=== PATIENT | female | born 1940 | race Caucasian/White ===

== ENCOUNTER 2020-11-07 08:14 | Outpatient (CLI) | payer MEDICARE, SELFPAY ==
[2020-11-07 08:40] LABS: Hemoglobin A1C 5.7 % (<5.7)
[2020-11-07 08:42] LABS: Add Urine Microscopic? YES; Appearance Urine Clear (Clear); Bilirubin Urine Negative (Negative); Blood Urine Negative (Negative); Color Urine Light Yellow (Yellow); Glucose Urine UA Negative (Negative); Ketones Urine Negative (Negative); Leukocyte Esterase Ur 1+ (Negative); Nitrate Urine Negative (Negative); Protein Urine Negative (Negative); Urobilinogen Urine 0.2 mg/dL (0.2-1.0)
[2020-11-07 08:47] LABS: Bacteria Urine Trace /hpf; RBC Urine 0-2 /hpf (0-2); Squamous Epithelial Cell Urine Rare /hpf (Few)
[2020-11-07 09:47] LABS: Alanine Aminotransferase 30 U/L (14-59); Albumin Level 3.9 g/dL (3.4-5.0); Alkaline Phosphatase 86 U/L (46-116); Anion Gap 7 mmol/L (8-16); Aspartate Amino Transferase 17 U/L (15-37); Bilirubin,Total 0.5 mg/dL (0.00-1.00); Blood Urea Nitrogen 15 mg/dL (7-18); Calcium 8.7 mg/dL (8.5-10.1); Carbon Dioxide 33 mmol/L (21-32); Chloride 108 mmol/L (98-108); Cholesterol 256 mg/dL (0-200); Creatine Kinase 83 U/L (26-192); Estimated Glomerular Filt Rate 53; Free T3 2.29 pg/mL (2.18-3.98); Free T4 Free Thyroxine 0.81 ng/dL (0.76-1.46); Glucose 90 mg/dL (70-99); HDL Direct 55 mg/dL (40-60); LDL Cholesterol Calculated 185 mg/dL (<130); Osmolality Calculated 306 mOsm/kg (285-295); Potassium 4.9 mmol/L (3.5-5.1); Sodium 148 mmol/L (136-145); Total Protein 6.6 g/dL (6.4-8.2); Triglycerides 81 mg/dL (0-150)
== END 2020-11-07 08:15 | disposition home or self-care (01) ==
LOC: CHSLAB 08:16
PROVIDERS: PCP Internal Medicine; Visit Provider Internal Medicine
DX: R73.01 Impaired fasting glucose (principal); E03.4 Atrophy of thyroid (acquired); M81.0 Age-related osteoporosis without current pathological fracture; E78.2 Mixed hyperlipidemia; I10 Essential (primary) hypertension
CPT/HCPCS: 36415; 80053; 80061; 81001; 82550; 83036; 84439; 84443; 84481

== ENCOUNTER 2020-11-23 09:43 | Outpatient (CLI) | payer MEDICARE, SELFPAY ==
--- NOTE | ~2020-11-23 | US_ITS ---
EXAMINATION: US carotid duplex BI DATE: 11/23/2020 10:17 INDICATION: Carotid bruit TECHNIQUE: Grayscale, color Doppler, and pulsed Doppler images of the cervical carotid arteries were obtained. The degree of vessel stenosis is placed in one of the following categories: normal, <50%, 5 0-69%, >=70% but less than near-occlusion, near-occlusion, or total occlusion. Note that percent sten osis relative to normal distal artery lumen diameter is indirectly measured from velocity measurement s as described by Denny, et al. Radiology 2003; [id number]:[id number]. COMPARISON: None. FINDINGS: RIGHT: The right common carotid artery (CCA) peak systolic velocity (PSV) is 55 cm/s. The right internal car otid artery (ICA) PSV is 72 cm/s. The right ICA end-diastolic velocity (EDV) is 26 cm/s. The right IC A/CCA PSV ratio is 1.3. Grayscale and color Doppler images yield an estimate of <50% diameter reducti on from plaque in the ICA. The external carotid artery (ECA) PSV is 70 cm/s. There is antegrade flow in the right vertebral artery. LEFT: The left CCA PSV is 58 cm/s. The left ICA PSV is 89 cm/s. The left ICA EDV is 27 cm/s. The left ICA/C CA PSV ratio is 1.5. Grayscale and color Doppler images yield an estimate of <50% diameter reduction from plaque in the ICA. The ECA PSV is 77 cm/s. There is antegrade flow in the left vertebral artery. IMPRESSION: 1. <50% stenosis in the right internal carotid artery. 2. <50% stenosis in the left internal carotid artery. Reviewed, dictated and finalized at location A.
== END 2020-11-23 09:44 | disposition home or self-care (01) ==
PROVIDERS: PCP Internal Medicine; Visit Provider Internal Medicine
DX: I65.23 Occlusion and stenosis of bilateral carotid arteries (principal)
CPT/HCPCS: 93880

== ENCOUNTER 2021-05-28 08:43 | Outpatient (CLI) | payer MEDICARE, SELFPAY ==
[2021-05-28 09:17] LABS: Basophils Absolute Auto 0.03 K/mm3 (0.00-0.10); Basophils Percent Auto 0.4 % (0.0-1.0); Eosinophils Absolute Auto 0.33 K/mm3 (0.02-0.50); Eosinophils Percent Auto 4.7 % (1.0-6.0); Hematocrit 46.4 % (35.0-42.0); Hemoglobin 15.1 g/dL (11.7-13.8); Immature Granulocyte Absolute 0.02 K/mm3 (0.00-0.00); Immature Granulocyte Percent A 0.3 % (0.0-0.0); Lymphocytes Absolute Auto 1.78 K/mm3 (1.10-4.50); Lymphocytes Percent Auto 25.5 % (18.0-42.0); Mean Corpuscular HGB Conc 32.5 g/dL (32.0-36.0); Mean Corpuscular Hemoglobin 33.4 pg (27.0-31.0); Mean Corpuscular Volume 102.7 fL (78.0-102.0); Mean Platelet Volume 10.8 fl (9.2-11.8); Monocytes Absolute Auto 0.55 K/mm3 (0.10-0.90); Monocytes Percent Auto 7.9 % (2.0-11.0); Neutrophils Absolute Auto 4.3 K/mm3 (1.7-7.2); Neutrophils Percent Auto 61.2 % (50.0-70.0); Platelet Count Result 232 K/mm3 (150-420); Red Blood Count 4.52 M/mm3 (4.20-5.40); Red Cell Distribution Width 12.4 % (11.6-14.4)
[2021-05-28 09:23] LABS: Add Urine Microscopic? YES; Appearance Urine Clear (Clear); Bilirubin Urine 1+ (Negative); Blood Urine Negative (Negative); Color Urine Yellow (Yellow); Glucose Urine UA Negative (Negative); Ketones Urine Negative (Negative); Leukocyte Esterase Ur Negative (Negative); Nitrate Urine Negative (Negative); Protein Urine Trace (Negative); Specific Grav Ur >= 1.030 (1.010-1.020); Urobilinogen Urine 0.2 mg/dL (0.2-1.0)
[2021-05-28 09:40] LABS: Hemoglobin A1C 5.9 % (<5.7)
[2021-05-28 09:55] LABS: Bacteria Urine Trace /hpf; RBC Urine None seen /hpf (0-2); Squamous Epithelial Cell Urine Few /hpf (Few); WBC Urine None seen /hpf (0-3)
[2021-05-28 10:48] LABS: Alanine Aminotransferase 26 U/L (14-59); Albumin Level 3.8 g/dL (3.4-5.0); Alkaline Phosphatase 74 U/L (46-116); Anion Gap 13 mmol/L (8-16); Aspartate Amino Transferase 15 U/L (15-37); Bilirubin,Total 0.6 mg/dL (0.00-1.00); Blood Urea Nitrogen 11 mg/dL (7-18); Calcium 8.9 mg/dL (8.5-10.1); Carbon Dioxide 28 mmol/L (21-32); Chloride 105 mmol/L (98-108); Cholesterol 267 mg/dL (0-200); Estimated Glomerular Filt Rate 46; Free T3 2.52 pg/mL (2.18-3.98); Free T4 Free Thyroxine 0.85 ng/dL (0.76-1.46); Glucose 111 mg/dL (70-99); HDL Direct 64 mg/dL (40-60); LDL Cholesterol Calculated 182 mg/dL (<130); Osmolality Calculated 302 mOsm/kg (285-295); Potassium 4.2 mmol/L (3.5-5.1); Sodium 146 mmol/L (136-145); Thyroid Stimulating Hormone 1.98 uIU/mL (0.36-3.74); Total Protein 6.7 g/dL (6.4-8.2); Triglycerides 106 mg/dL (0-150)
[2021-05-28 10:50] LABS: Vitamin B12 > 2000 pg/mL (193-986)
[2021-05-30 14:29] LABS: Vitamin D 25 Hydroxy 31 ng/mL (30-100)
== END 2021-05-28 08:44 | disposition home or self-care (01) ==
LOC: CHSLAB 08:45
PROVIDERS: PCP Internal Medicine; Visit Provider Internal Medicine
DX: M81.0 Age-related osteoporosis without current pathological fracture (principal); I10 Essential (primary) hypertension; E03.4 Atrophy of thyroid (acquired); E78.2 Mixed hyperlipidemia; E11.9 Type 2 diabetes mellitus without complications
CPT/HCPCS: 36415; 80053; 80061; 81001; 82306; 82607; 83036; 84439; 84443; 84481; 85025

== ENCOUNTER 2021-08-05 11:05 | Outpatient (CLI) | payer MEDICARE, SELFPAY ==
--- NOTE | ~2021-08-05 | XR_ITS ---
EXAMINATION: XR hip BI 2V w AP pelvis EXAM DATE: 08/05/2021 11:51 INDICATION: Bilateral hip pain, pelvic pain. States fell 3 days ago. TECHNIQUE: Each hip imaged independently (separate right and also left hip) 'frog leg' and frontal p rojections for interpretation. Frontal projection pelvis. Comparison is made to prior examination fr om 06/12/2014. FINDINGS: No radiographic evidence of hip avascular necrosis. There is mild bilateral hip primary o steoarthritis. Moderate to severe disc disease lower lumbar levels. Evidence of lumbar levoscoliosis . Sacrum, sacroiliac joints, sacral arcuate lines are intact. There are no acute fractures identified . IMPRESSION: 1. No acute pelvic or hip fracture. 2. Mild symmetric hip osteoarthritis. 3. Advanced lower lumbar disc disease. Reviewed, dictated and finalized at location A.
== END 2021-08-05 11:06 | disposition home or self-care (01) ==
LOC: CHSIMG 11:08
PROVIDERS: PCP Internal Medicine; Visit Provider Nurse Practitioner Family
DX: M25.552 Pain in left hip (principal); M25.551 Pain in right hip; R10.2 Pelvic and perineal pain
CPT/HCPCS: 73521

== ENCOUNTER 2021-08-06 11:52 | Outpatient (CLI) | payer MEDICARE, SELFPAY ==
--- NOTE | ~2021-08-06 | XR_ITS ---
EXAM: XR lumbar spine 2-3V HISTORY: hx Lumbar DDD, fall 1 wk ago, severe bilat hip pain, LT>RT COMPARISON: MRI lumbar spine 06/14/2014. FINDINGS: 5 nonrib-bearing lumbar-type vertebral bodies with intact pedicles. Lumbar scoliosis. Vert ebral bodies are aligned. Heights are maintained. Disc space narrowing at all lumbar levels, severe a t L3-4, L4-5, and L5-S1. Interspinous narrowing. No fracture or dislocation. IMPRESSION: No acute fracture or traumatic malalignment in the lumbar spine. Multilevel severe degenerative disc disease. Reviewed, dictated and finalized at location K. IMPRESSION: No acute fracture or traumatic malalignment in the lumbar spine. Multilevel sev ere degenerative disc disease.
== END 2021-08-06 11:53 | disposition home or self-care (01) ==
LOC: CHSIMG 11:54
PROVIDERS: PCP Internal Medicine; Visit Provider Nurse Practitioner Family
DX: M51.36 Other intervertebral disc degeneration, lumbar region (principal)
CPT/HCPCS: 72100

== ENCOUNTER 2021-08-13 09:02 | Outpatient (CLI) | payer MEDICARE, SELFPAY ==
--- NOTE | ~2021-08-13 | MR_ITS ---
EXAMINATION: MR lumbar spine wo con DATE: 08/13/2021 09:50 INDICATION: Lumbar degenerative disc disease. Bilateral hip pain. TECHNIQUE: Magnetic resonance imaging (MRI) of the lumbar spine was performed without intravenous con trast. Sequences included sagittal T2-weighted FSE, sagittal T2-weighted FS FSE, sagittal T1-weighted FSE, and axial T2-weighted FSE. COMPARISON: Lumbar spine MRI 06/14/2014 FINDINGS: There is 13 degrees levoscoliosis of lumbar spine. Vertebral body heights are normal. There is mildly decreased disc height at L2-L3 and severely decreased disc height from L3-L4 through L5-S1 with endplate remodeling. 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 The distal spinal cord signal intensity is normal. The conus medullaris is at L1. There are left kidney cyst measuring up to 2.7 cm . The following disc levels are specifically discussed: L1-L2: The disc does not extend beyond the endplate margin. There is mild bilateral facet joint osteo arthritis. There is no neural foraminal stenosis. There is no central canal stenosis. L2-L3: The disc is bulging and has an annular fissure. There is mild bilateral facet joint osteoarthr itis. There is mild bilateral neural foraminal stenosis. There is mild central canal stenosis. L3-L4: The disc is bulging and has an annular fissure. There is moderate bilateral facet joint osteoa rthritis. There is mild bilateral neural foraminal stenosis. There is mild central canal stenosis. L4-L5: The disc is bulging and has an annular fissure. There is mild bilateral facet joint osteoarthr itis. There is mild bilateral neural foraminal stenosis. There is mild central canal stenosis. L5-S1: The disc is bulging and has an annular fissure. There is mild right and moderate left facet roge int osteoarthritis. There is mild right and moderate left neural foraminal stenosis. There is mild ce ntral canal stenosis. IMPRESSION: 1. Severe lumbar spondylosis, worsened from 06/14/2014. 2. Lumbar levoscoliosis. Reviewed, dictated and finalized at location A.
== END 2021-08-13 09:03 | disposition home or self-care (01) ==
LOC: CHSIMG 09:03
PROVIDERS: PCP Internal Medicine; Visit Provider Internal Medicine
DX: M51.36 Other intervertebral disc degeneration, lumbar region (principal); M25.552 Pain in left hip; M25.551 Pain in right hip
CPT/HCPCS: 72148

== ENCOUNTER 2022-06-02 12:27 | Observation (INO) | payer MEDICARE, SELFPAY ==
[2022-06-02] VITALS (20 sets, daily range): BP systolic 136–157; BP diastolic 66–92; PULSE 68–95; RESP 12–33; TEMP 36.4; O2SAT 92–98; BMI 28.2
--- NOTE | ~2022-06-02 | XR_ITS ---
EXAM: XR shoulder RT min 2V DATE: 06/02/2022 17:00 HISTORY: right shoulder pain. FALL AT 0400 TODAY . COMPARISON: None available. FINDINGS: Normal mineralization. No fracture or dislocation. No lytic or blastic lesion. Degenerativ e change at the AC joint and glenohumeral joint. No erosion or periosteal change. Soft tissues within normal limits. IMPRESSION: No acute osseous finding in the right shoulder. Reviewed, dictated and finalized at location K. H CERTIFICATE CLERK
--- NOTE | ~2022-06-02 | CT_ITS ---
EXAMINATION: CTA brain carotid DATE: 06/02/2022 16:50 INDICATION: AMS TECHNIQUE: Computed tomographic angiography (CTA) of the head and neck was performed with 100 mL Omni paque-350 intravenous contrast. Automated exposure control and iterative reconstruction technique wer e employed. The dose-length product was 967.64 mGy-cm. Maximum intensity projection and volume render ed 3D-reconstructions were created by the technologist on a separate workstation. COMPARISON: CT brain, same date. FINDINGS: CTA HEAD: No large vessel occlusion, aneurysm, high flow vascular malformation, nidus or extravasation. The ant erior to indicating artery is patent. Bilateral persistent origin of the posterior cerebral art eries. Hypoplastic intradural portion of the left distal vertebral artery. Symmetric bilateral cerebr al and cerebellar parenchymal enhancement. No cerebral venous thrombosis. CTA NECK: Aortic arch and proximal great vessels: Minimal atherosclerotic calcifications at the visualized aort ic arch and proximal great vessels. Right common carotid, carotid bifurcation, and internal carotid artery: Minimal calcified plaque at t he bifurcation.There is 0% stenosis of the proximal right internal carotid artery relative to normal distal artery lumen diameter (NASCET criteria). Left common carotid, carotid bifurcation, and internal carotid artery: Minimal calcified plaque at th e bifurcation.There is 0% stenosis of the proximal left internal carotid artery relative to normal di stal artery lumen diameter (NASCET criteria). Vertebral arteries: No significant plaque or stenosis. Right vertebral artery is dominant. Other findings: Bilateral lens replacements. Biapical pleural scarring. Emphysematous change. Depende nt groundglass opacities may represent mild edema. Degenerative change in the cervical spine. Old typ e II odontoid fracture. Anterior C1 arch and odontoid tip fusion. IMPRESSION: 1. No acute large vessel occlusion. 2. No significant carotid or vertebral stenosis. 3. Chronic/incidental findings detailed above. Reviewed, dictated and finalized at location K. CY OFFICER
--- NOTE | ~2022-06-02 | CT_ITS ---
EXAMINATION: CT brain wo con INDICATION: Weakness and tremors COMPARISON: None TECHNIQUE: Standard unenhanced head CT. The dose-length product (DLP) was 605.33 mGy-cm. The mA was a djusted according to patient size. Iterative reconstruction technique was employed. FINDINGS: There is no acute intraparenchymal hemorrhage. No evidence of mass lesion. No evidence of a cute infarction. There is mild periventricular and subcortical hypodensity probably related to small vessel ischemic disease. There is mild prominence of the sulci and ventricles related to cerebral atr ophy. Intracranial calcified cerebral atherosclerosis is noted. There are no extra-axial collections. There is no mass effect or midline shift. Changes in the globes are likely from ocular lens surgery. The visualized sinuses and mastoid air cells are well aerated. IMPRESSION: 1. No acute intracranial abnormality. 2. Age related findings. Reviewed, dictated and finalized at location B. DELIVERER
--- NOTE | ~2022-06-02 | MR_ITS ---
EXAMINATION: MR brain/brain stem wo/w con DATE: 06/03/2022 07:54 INDICATION: Transient ischemic attack. TECHNIQUE: Magnetic resonance imaging (MRI) of the brain and brainstem was performed without and with 14 mL MultiHance intravenous contrast. COMPARISON: Head CT 06/02/2022, brain MRI 10/02/2007 FINDINGS: There are scattered areas of nonspecific increased T2-weighted signal intensity in the cere bral white matter and grace, which is within normal limits for the patient's age. There is no intracra nial hemorrhage, acute infarction, or abnormal intracranial mass lesion. The ventricles are normal in size. There are likely changes of ocular lens replacement surgeries. There is mild mucosal thickenin g in the ethmoid sinuses. The mastoid air cells are normal. IMPRESSION: 1. Normal aging brain. Reviewed, dictated and finalized at location A. CIATE MERCHANT IMPRESSION: 1. Normal aging brain.
--- NOTE | ~2022-06-02 | XR_ITS ---
EXAMINATION: XR chest 1V DATE: 06/02/2022 14:46 INDICATION: Weakness. TECHNIQUE: A single frontal view of the chest was obtained. COMPARISON: Chest single view 12/29/2016 FINDINGS: There is mild atelectasis at left lung base. There is mild scarring at the lung apices. No pleural effusion or pneumothorax. The heart size is normal. IMPRESSION: 1. Mild atelectasis at left lung base and mild scarring at the lung apices. Reviewed, dictated and finalized at location A. ANICAL DEVELOPER PROVER
--- NOTE | ~2022-06-02 | XR_ITS ---
EXAM: XR hip RT 2V w AP pelvis DATE: 06/02/2022 16:59 HISTORY: right hip pain after fall AT 0400 TODAY. . COMPARISON: 08/05/2021. FINDINGS: Normal mineralization. No fracture or dislocation. No lytic or blastic lesion. Severe dege nerative disc disease in the lower lumbar spine. Mild bilateral hip osteoarthritis. Chronic dystrophi c ossification adjacent to the right greater trochanter. No erosion or periosteal change. Excreted co ntrast in the urinary bladder. IMPRESSION: No acute osseous finding in the pelvis or right hip. Reviewed, dictated and finalized at location K. INFRASTRUCTURE ENGINEER
--- NOTE | 2022-06-02 13:27 | ECG_ITS ---
Measurements Intervals [place] Rate: 71 P: 33 IN: 172 QRS: -21 QRSD: 84 T: 70 QT: 399 QTc: 434 Interpretive Statements SINUS RHYTHM BORDERLINE LEFT AXIS DEVIATION [QRS AXIS < -20] MINIMAL ST AND T-WAVE CHANGE NO PREVIOUS ECG AVAILABLE FOR COMPARISON Electronically Signed On 06-03-2022 11:24:12 INVENTORY WORKER by Ashlyn Buckley M.D.
[2022-06-02 14:29] LABS: Basophils Absolute Auto 0.1 K/mm3 (0.0-0.1); Basophils Percent Auto 0.7 % (0.2-1.2); Eosinophils Absolute Auto 0.2 K/mm3 (0-0.3); Eosinophils Percent Auto 2.7 % (0-4.4); Hematocrit 46.8 % (37.0-47.0); Hemoglobin 15.6 g/dL (12.0-15.0); Immature Granulocyte Absolute 0.02 K/mm3 (0.00-0.031); Immature Granulocyte Percent A 0.2 % (0-0.5); Lymphocytes Absolute Auto 1.72 K/mm3 (0.9-3.2); Lymphocytes Percent Auto 20.8 % (18.3-44.2); Mean Corpuscular HGB Conc 33.3 g/dl (32-36); Mean Corpuscular Hemoglobin 35.1 pg (26-34); Mean Corpuscular Volume 105.4 fl (80-100); Mean Platelet Volume 10.9 fl (7.4-10.4); Monocytes Absolute Auto 0.7 K/mm3 (0.1-0.6); Monocytes Percent Auto 8.4 % (2.6-8.5); Neutrophils Absolute Auto 5.5 K/mm3 (1.3-6.7); Neutrophils Percent Auto 67.2 % (45.5-73.1); Platelet Count Result 308 k/mm3 (150-375); Red Blood Count 4.44 M/mm3 (4.2-5.4); Red Cell Distribution Width 12.8 % (11.5-14.5); White Blood Count 8.3 K/mm3 (4.5-10.0)
[2022-06-02 14:40] LABS: Prothrombin Time 13.1 Seconds (11.1-14.7)
[2022-06-02 14:41] LABS: Partial Thromboplastin Time 30.8 SECONDS (22.3-36.8)
[2022-06-02 14:47] LABS: Platelet Estimate Adequate (Adequate)
[2022-06-02 14:48] LABS: Macrocytosis 1+ (NORMAL); Schistocytes None Seen (NORMAL); Stomatocytes 1+ (NORMAL)
[2022-06-02 15:36] LABS: Alanine Aminotransferase 22 U/L (6-35); Albumin Level 4.8 g/dL (3.5-5.1); Alkaline Phosphatase 77 U/L (38-126); Anion Gap 6 mmol/L (8-16); Aspartate Amino Transferase 27 U/L (14-36); Bilirubin,Total 0.6 mg/dL (0.2-1.3); Blood Urea Nitrogen 20 mg/dL (7-17); Calcium 8.9 mg/dL (8.4-10.2); Carbon Dioxide 29 mmol/L (22-30); Chloride 104 mmol/L (98-107); Estimated CRCL calculation 41 ml/min; Estimated Glomerular Filt Rate 60; Glucose 99 mg/dL (65-110); Potassium 3.8 mmol/L (3.4-5.0); Sodium 139 mmol/L (137-145)
--- NOTE | 2022-06-02 15:44 | ED.GENADULT ---
HPI - General Adult General Chief complaint: Neuro Symptoms/Deficit Stated complaint: shaking episode this am Time Seen by Provider: 06/02/22 15:07 History of Present Illness HPI narrative: 81-year-old female presenting to the emergency department for evaluation of altered mental status after a fall. Patient states she had a fall this morning at approximately 4 AM. Patient states she was walking through the kitchen. Patient states she does not think she hit her head denies any loss of consciousness. Patient is unsure of what caused the fall. Initially after the fall patient was complaining of right shoulder and right hip pain but patient was able to ambulate back to her bed. Patient states she had some right-sided facial numbness and states that her left leg was difficult to get back under her. Patient did take a 4-hour nap and patient states she felt better but thought she was not back to her normal self. Her initial evaluation the emergency department patient feels she is back to her normal self and states that other than her physical strength she appears back to her normal self. Patient states she does still have some right shoulder discomfort but states she does have chronic pain but that the current pain is worse than her chronic. Review of Systems Review of Systems: CONSTITUTIONAL: Denies fever, chills, or sweats. EYES: Denies visual changes, redness, or discharge. ENT: Denies rhinorrhea, congestion, sore throat, or otalgia. CARDIOVASCULAR: Denies chest pain, palpitations, or edema. RESPIRATORY: Denies cough or dyspnea. GASTROINTESTINAL: Denies abdominal pain, nausea, vomiting, or diarrhea. GENITOURINARY: Denies dysuria or hematuria. SKIN: Denies rash or itching. MUSCULOSKELETAL: Denies back pain, joint pain, or myalgia. NEUROLOGIC: See HPI PSYCHIATRIC: Denies anxiety or depression. Exam Narrative: APPEARANCE: Well appearing, no pain, no distress, well-nourished. HEAD: normocephalic, atraumatic. EYES: PERRLA/EOMI, conjunctivae clear. NOSE: Normal no drainage NECK: Supple. No adenopathy, no masses. RESPIRATORY: Airway patent, respirations nonlabored. Clear to auscultation bilaterally, no rales, rhonchi, wheezing. CARDIOVASCULAR: Regular rate and rhythm without murmurs rubs or gallops. ABDOMINAL: Soft, nontender, nondistended, normal bowel sounds MUSCULOSKELETAL: Moves all extremities. Strength/ROM intact, No edema, No calf tenderness. NEURO: Alert. Cranial nerves II through XII intact. Grossly intact. No discrimination, no ataxia, normal visual slater SKIN: Warm, dry. Normal Color Course Course Emergency Course: X-rays were negative for acute fracture or dislocation. Patient's head CT was negative. CTA was ordered due to the patient still feeling foggy . CTA was negative for acute finding. On reexamination patient states she does feel improved. Patient did have a normal neuro exam with no deficit. Patient was able to ambulate at her baseline. Patient is afebrile with no leukocytosis. Patient's electrolytes are similar to her baseline. Symptoms are concerning for a TIA. No evidence of acute stroke on imaging. Patient is back to her normal baseline. Patient was offered admission and did agree to stay. Case was also discussed with Dr. Lopez and patient will be seen as consult by neurology. Case was discussed with hospitalist and patient [facility] Patient was at her baseline and stable at time of admission. All question concerns were addressed. Vital Signs Vital signs: Vital Signs Temperature 97.6 F 06/02/22 13:17 Pulse Rate 68 06/02/22 13:17 Respiratory Rate 16 06/02/22 13:17 Blood Pressure 140/66 06/02/22 13:17 Pulse Oximetry 97 06/02/22 13:17 Oxygen Delivery Room Air 06/02/22 13:17 Temperature 97.6 F 06/02/22 13:17 Pulse Rate 79 06/02/22 18:15 Respiratory Rate 12 06/02/22 18:15 Blood Pressure 139/92 H 06/02/22 18:15 Puls
[2022-06-02 15:49] LABS: Troponin I < 0.012 ng/mL (0.000-0.034)
[2022-06-02] MEDS: ASPIRIN 81 MG CHEWABLE TABLET 324 MG PO (18:07)
[2022-06-02 19:01] LABS: Influenza A QL RT-PCR Negative (Negative); Influenza B QL RT-PCR Negative (Negative); RSV RNA, RT-PCR Negative (Negative); SARS-CoV-2 RNA PCR Negative
--- NOTE | 2022-06-02 19:51 | PM.IMHP ---
H&P: HPI History of Present Illness Date/Time: 06/02/22 19:51 Chief Complaint: Neurological symptoms Narrative: This is a 81-year-old female patient who got up early this morning and had a fall. She stated that she was having difficulty moving 1 of her legs. The patient fell on her way to the bathroom and was confused. She also has some right-sided numbness to her face and she had pain to her right shoulder and right hip after her fall. However she was able to ambulate back to her bed. The patient went back to bed and slept for few hours. When she woke up she still was not back to her baseline. There for the brought her to the emergency room. Now the patient is alert orientated x3 and is talking without difficulty. No focal weakness is noted. Shoulder x-ray was read as no acute osseous finding in the right shoulder. Hip and pelvis x-ray was read as no acute osseous finding the pelvis or right hip. CTA of the neck was read as1. No acute large vessel occlusion. 2. No significant carotid or vertebral stenosis. 3. Chronic/incidental findings detailed above Head CT was read as no acute intracranial abnormality. Age-related findings. Chest x-ray was read as mild atelectasis at left lung base and mild scarring at the lung apices. The patient was given an aspirin in the emergency room. She is negative for influenza A/B RSV and COVID. The patient is being admitted to observation status on the date of service of 06/02/2022 Review of Systems Review of Systems: See HPI All systems reviewed & are unremarkable except as noted in HPI and below Constitutional: Constitutional: Reports as per HPI and Reports no additional constitutional complaints Eyes: Eyes: Reports as per HPI and Reports no additional eye complaints ENT: Reports system reviewed and no additional complaints, except as documented and Reports Normal hearing present Cardiovascular: Cardiovascular: Reports no additional cardiovascular complaints Respiratory: Respiratory: Reports no additional respiratory complaints and Reports no additional respiratory complaints Gastrointestinal: Gastrointestinal: Reports as per HPI and Reports no additional gastrointestinal complaints Musculoskeletal: Musculoskeletal: Reports no additional musculoskeletal complaints Integumentary/Breasts: Skin/Breast: Reports system reviewed and no additional complaints, except as docu and Reports as per HPI Neurologic: Reports system reviewed and no additional complaints, except as documented, Reports as per HPI and Reports Normal hearing present Psychiatric: Psychiatric: Reports no additional psychiatric complaints and Reports as per HPI Endocrine: Endocrine: Reports no additional endocrine complaints Hematologic/Lymphatic: Hematologic/Lymphatic: Reports no additional hematologic/lymphatic complaints Allergic/Immunologic: Allergic/Immunologic: Reports no additional allergic/immunologic complaints [facility] Past Medical History Medical History (Updated 06/03/22 @ 02:12 by Triny Matos NP) Chronic GERD COPD (chronic obstructive pulmonary disease) asthma and emphysema Restless leg syndrome Surgical History Surgical History H/O colonoscopy with polypectomy H/O esophagogastroduodenoscopy H/O: hysterectomy History of appendectomy History of bladder suspension procedure Family History Family History Mother Cerebrovascular accident Father Carcinoma of colon COPD (chronic obstructive pulmonary disease) Lung cancer Sibling Lung cancer sister Social History Social History (Updated 06/03/22 @ 02:13 by Triny Matos NP) Social History: She lives with and has 3 children. She is retired from couple different jobs. Code status full code Smoking status: Former smoker Alcohol intake: never Substance use: never Lack of Transportation: No [place]
--- NOTE | 2022-06-02 20:29 | ADMGEN ---
This patient, Eden Zarate, was admitted to Medical Room 245-. Patient/family oriented to hospital policies and general routines including ID bracelet, bed and alarms, visiting hours, pain management, procedures, bathroom and other care routines, personal items, smoking policy, room service/diet, and visiting hours. Information on how to activate the Rapid Response Team has been discussed. Patient/Family are encouraged to report perceived risks to care and to ask questions if they do not understand what they are told or what they should do.
[2022-06-03] VITALS: PULSE 68
--- NOTE | 2022-06-03 | ECHO_ITS ---
Patient Info Name: Eden Zarate Age: 81 years : 1940 Gender: Female Ht: 62 in Wt: 154 lbs BSA: 1.77 m2 HR: 59 bpm BP: 136 / 47 mmHg Heart Rhythm: Sinus Rhythm Exam Date: 06/03/2022 8:24 AM Exam Location: [facility] Patient Status: Inpatient Admit Date: 06/02/2022 Staff Ordering Physician: Triny Matos PAINTER HELPER Extension Work Director: Tejinder Mohr, EMMA, RT Attending Provider: Keely Haile MD Referring Physician: Shawna PUENTES; Exam Type: CA echo doppler color flow Study Info Indications G45.8 - Other transient cerebral ischemic attacks and related syndromes Complete two-dimensional, color flow and Doppler transthoracic echocardiogram is performed. Summary 1. Complete two-dimensional, color flow and Doppler transthoracic echocardiogram is performed. 2. Normal left ventricular size with mild concentric hypertrophy. Normal left ventricular systolic function, EF 60-65%, with no segmental wall motion abnormalities. Normal diastolic function. Global longitudinal strain was-20%, consistent with normal left ventricular function. 3. There is mild aortic valve regurgitation. 4. There is mild tricuspid valve regurgitation. 5. No pulmonary hypertension, estimated pulmonary arterial systolic pressure is Empty. 6. Normal sinus rhythm. Left Ventricle Left ventricular chamber dimension is normal. Left ventricular systolic function is normal, estimated at 65-70%. There is mildly increased left ventricular wall thickness. Left ventricular septal wall motion is normal. The left ventricular diastolic function is normal. Global longitudinal strain is normal at -20 %. Right Ventricle Right ventricular chamber dimension is normal. Right ventricular systolic function is normal. Left Atria Left atrial chamber dimension is normal. Right Atria Right atrial chamber dimension is normal. Aortic Valve The aortic valve is trileaflet. There is no aortic valve sclerosis. There is no aortic valve stenosis. There is mild aortic valve regurgitation. Pulmonic Valve The pulmonic valve is normal. There is no pulmonic valve stenosis. There is no pulmonic regurgitation. Mitral Valve The mitral valve has normal leaflets. There is no mitral valve stenosis. There is trace mitral valve regurgitation. Tricuspid Valve The tricuspid valve leaflets are normal. There is no significant tricuspid valve stenosis. There is mild tricuspid valve regurgitation. No pulmonary hypertension, estimated pulmonary arterial systolic pressure is Empty. Pericardium/Pleural The pericardium appears normal. There is no pericardial effusion. Inferior Vena Cava Normal inferior vena cava with >50% collapse upon inspiration consistent with Empty right atrial pressure, Empty. Aorta The aortic root size at the sinus of Valsalva is normal. The prox ascending aorta size is normal. Left Ventricular Outflow Tract Name Value Normal LVOT 2D LVOT Diameter 2.1 cm LVOT Doppler LVOT Peak Gradient 4 mmHg LVOT Mean Gradient 2 mmHg LVOT VTI
[2022-06-03 02:27] LABS: Appearance Urine Clear (Clear); Bilirubin Urine Negative (Negative); Blood Urine Trace-intact (Negative); Color Urine Yellow (Yellow); Glucose Urine UA Negative (Negative); Ketones Urine Negative (Negative); Leukocyte Esterase Ur Negative LEU/UL (NEGATIVE); Nitrate Urine Negative (Negative); Protein Urine Negative (Negative); Urobilinogen Urine 0.2 mg/dL (<2.0); pH Urine 6.5 (5.0-9.0)
[2022-06-03 02:34] LABS: RBC Urine 0-2 /hpf (0-2); Squamous Epithelial Cell Urine Rare /hpf (Few); WBC Urine 0-3 /hpf (0-3)
[2022-06-03 02:35] LABS: Add Urine Microscopic? NO
[2022-06-03] MEDS: PREGABALIN (*CRX) 75 MG CAPSULE 150 MG PO (02:51)
[2022-06-03] MEDS: MEMANTINE 10 MG TABLET PO (02:52)
[2022-06-03] MEDS: MIRTAZAPINE 15 MG TABLET PO (02:52)
[2022-06-03] MEDS: PANTOPRAZOLE 40 MG TABLET PO (02:52)
[2022-06-03 04:00] VITALS: PULSE 69
[2022-06-03 05:24] VITALS: BP 136/47; PULSE 65; RESP 18; TEMP 36.2; O2SAT 94
[2022-06-03 06:21] LABS: Basophils Absolute Auto 0.1 K/mm3 (0.0-0.1); Basophils Percent Auto 1.2 % (0.2-1.2); Eosinophils Absolute Auto 0.3 K/mm3 (0-0.3); Eosinophils Percent Auto 4.2 % (0-4.4); Hematocrit 42.6 % (37.0-47.0); Hemoglobin 14.3 g/dL (12.0-15.0); Immature Granulocyte Absolute 0.01 K/mm3 (0.00-0.031); Immature Granulocyte Percent A 0.2 % (0-0.5); Lymphocytes Absolute Auto 2.15 K/mm3 (0.9-3.2); Lymphocytes Percent Auto 36.4 % (18.3-44.2); Mean Corpuscular HGB Conc 33.6 g/dl (32-36); Mean Corpuscular Hemoglobin 35.2 pg (26-34); Mean Corpuscular Volume 104.9 fl (80-100); Mean Platelet Volume 10.8 fl (7.4-10.4); Monocytes Absolute Auto 0.6 K/mm3 (0.1-0.6); Monocytes Percent Auto 9.5 % (2.6-8.5); Neutrophils Absolute Auto 2.9 K/mm3 (1.3-6.7); Neutrophils Percent Auto 48.5 % (45.5-73.1); Platelet Count Result 246 k/mm3 (150-375); Red Blood Count 4.06 M/mm3 (4.2-5.4); Red Cell Distribution Width 12.8 % (11.5-14.5); White Blood Count 5.9 K/mm3 (4.5-10.0)
[2022-06-03 06:35] LABS: Alanine Aminotransferase 21 U/L (6-35); Albumin Level 4.3 g/dL (3.5-5.1); Alkaline Phosphatase 64 U/L (38-126); Anion Gap 6 mmol/L (8-16); Aspartate Amino Transferase 28 U/L (14-36); Bilirubin,Total 0.8 mg/dL (0.2-1.3); Blood Urea Nitrogen 16 mg/dL (7-17); Calcium 8.6 mg/dL (8.4-10.2); Carbon Dioxide 30 mmol/L (22-30); Chloride 106 mmol/L (98-107); Estimated CRCL calculation 41 ml/min; Estimated Glomerular Filt Rate 60; Glucose 95 mg/dL (65-110); Magnesium 2.3 mg/dL (1.6-2.3); Potassium 3.3 mmol/L (3.4-5.0); Sodium 142 mmol/L (137-145)
[2022-06-03 08:00] VITALS: PULSE 79; RESP 18; O2SAT 93
--- NOTE | 2022-06-03 09:02 | WPDNEURCNPN ---
Assessment and Plan Assessment and plan (1) Brain TIA: Code(s): G45.9 - Transient cerebral ischemic attack, unspecified Status: Acute (2) Memory deficit: Code(s): R41.3 - Other amnesia Status: Acute (3) Restless leg syndrome: Code(s): G25.81 - Restless legs syndrome Status: Acute Plan Eden Zarate is a 81 year old female with a history of COPD, RLS and dementia presenting due to concern for TIA. MRI brain normal. - Start daily aspirin - Patient reports she has already been prescribed a medication for hyperlipidemia -- she will need to follow-up with PCP regarding further management of this - Surface echocardiogram pending - if unremarkable, ok to discharge Consult date: 06/03/22 Reason for consult: TIA HPI: Eden Zarate is a 81 year old female with a history of COPD, RLS and dementia presenting due to concern for TIA. Patient presented on 06/02 after sustaining a fall in the morning. Patient was walking in her kitchen when she fell. She did not hit her head or have any loss of consciousness. Afterwards she noted numbness in the right side of the face as well as pain in the right shoulder and right hip. She was able to ambulate back to bed, but felt that her left leg was weaker. She took a nap for several hours, but still did not seem back to baseline afterwards according to her . She was subsequently to the emergency room where her neuro exam was non-focal and she was back to baseline. CT head and CTA brain and carotid were unremarkable. Blood pressure has been in the 130-150s systolic. She is not on any blood thinners. She does take donepezil and memantine for dementia. MRI brain was normal. She feels back to baseline. She does not take any statins because it exacerbates her fibromyalgia. She reports that her PCP has prescribed her an injectable medication for her cholesterol, but she does not know the name of it. She does not smoke. Review of Systems Constitutional: Constitutional: Reports no additional constitutional complaints Eyes: Eyes: Reports no additional eye complaints ENT: Reports system reviewed and no additional complaints, except as documented Cardiovascular: Cardiovascular: Reports no additional cardiovascular complaints Respiratory: Respiratory: Reports no additional respiratory complaints Gastrointestinal: Gastrointestinal: Reports no additional gastrointestinal complaints Genitourinary: Genitourinary: Reports no additional female genitourinary complaints Musculoskeletal: Musculoskeletal: Reports no additional musculoskeletal complaints Integumentary/Breasts: Skin/Breast: Reports system reviewed and no additional complaints, except as docu Neurologic: Reports as per HPI Psychiatric: Psychiatric: Reports no additional psychiatric complaints PMFSH Past Medical History Medical History Chronic GERD COPD (chronic obstructive pulmonary disease) asthma and emphysema Restless leg syndrome Surgical History Surgical History H/O colonoscopy with polypectomy H/O esophagogastroduodenoscopy H/O: hysterectomy History of appendectomy History of bladder suspension procedure Family History Family History Mother Cerebrovascular accident Father Carcinoma of colon COPD (chronic obstructive pulmonary disease) Lung cancer Sibling Lung cancer sister Social History Social History Social History: She lives with and has 3 children. She is retired from couple different jobs. Code status full code Smoking status: Former smoker Alcohol intake: never Substance use: never Lack of Transportation: No Lack of Food: Never True Current Housing: I Have Housing Concerned About Future Housing: No Difficulty Paying Gas/Electric
[2022-06-03] MEDS: ASPIRIN 81 MG CHEWABLE TABLET PO (09:56)
[2022-06-03 10:05] VITALS: PULSE 79; RESP 18; O2SAT 93
[2022-06-03] MEDS: FLUTICASONE/UMECLIDIN/VILANTER 100-62.5-25 MCG ELLIPTA 1 PUFF INHALATION (10:05)
--- NOTE | 2022-06-03 10:37 | PM.DS ---
DS: Admitting Diagnosis Discharge Date 06/03/22 Admitting Diagnosis TIA DS: Discharge Diagnosis Discharge Diagnosis (1) Brain TIA: Code(s): G45.9 - Transient cerebral ischemic attack, unspecified Status: Acute Assessment and Plan: -neurology has been consulted. -CT of the brain shows nothing acute. -an echo has been ordered with bubble study -MRI the brain has been ordered. -the patient was started on aspirin. -no further neural deficits was noted. (2) COPD (chronic obstructive pulmonary disease): Code(s): J44.9 - Chronic obstructive pulmonary disease, unspecified Status: Acute Assessment and Plan: -continue with home inhaler (3) Chronic GERD: Code(s): K21.9 - Gastro-esophageal reflux disease without esophagitis Status: Acute Assessment and Plan: Continue with pantoprazole (4) Memory deficit: Code(s): R41.3 - Other amnesia Status: Acute Assessment and Plan: -continue with Aricept and Namenda (5) Restless leg syndrome: Code(s): G25.81 - Restless legs syndrome Status: Acute Assessment and Plan: -continue with Remeron and Lyrica DS: Summary Hospital Course Hospital Course: 81-year-old female came in with lower extremity weakness. Patient was worked up for TIA workup was unrevealing for any CVA. Patient is started on aspirin statin. Can follow up with Neurology as needed. Otherwise she can be discharged home Time Spent with Patient Time attestation: Total time spent providing and/or coordinating discharge services: Exam Const: General: cooperative, healthy appearing, comfortable, no acute distress, well developed, alert, awake, Physically active, average body habitus and well nourished Nutritional Appearance: average body habitus and well nourished Orientation/consciousness: oriented to person, oriented to place, oriented to time and patient oriented x3 Limitations: no limitations HENMT: Head: normal to inspection, No palpable skull fracture present, normocephalic and atraumatic Ears: hearing grossly normal bilaterally and external ears normal Face/Nose/Sinus: Normal external nose present and Normal nares present Eyes: General: appearance normal, both eyes and all related structures Alignment and Position: alignment normal Periorbital: periorbital findings normal Eyelids: eyelids normal Sclera: sclerae normal Cornea: corneas normal Pupils: Equal, round and reactive pupils present EOM: EOMs intact bilaterally Neck: Neck: normal visual inspection, full ROM, no lymphadenopathy, trachea midline and supple Chest: Chest palpation & inspection: normal inspection of the chest Resp: Effort & Inspection: normal respiratory effort Auscultation: clear to auscultation bilaterally Cardio: Palpation: normal PMI Rate: regular rate Rhythm: regular rhythm Heart sounds: S1 normal heart sound present and S2 normal heart sound present Peripheral pulses: Peripheral pulses 2+ throughout GI: Inspection: normal to inspection Auscultation: normal bowel sounds Rectal Exam: deferred Back/Spine/Pelvis: Cervical Spine: cervical ROM normal Skin: General skin exam: normal color Lesions: no lesions Rashes: no rashes Trauma: no lacerations or abrasions Wounds: no wounds Hair: normal Nails: normal Neuro: General: oriented to person, oriented to place, oriented to time and patient oriented x3 Cranial nerves: Yes Equal, round and reactive pupils present and Yes Normal hearing present Cognition (Neuro): normal cognition Speech: normal speech Gait exam (Neuro): Normal gait present Motor exam (neuro): 5/5 motor strength present throughout Sensory Exam: normal sensation Other: No focal weakness at this time. The patient had an IV in the right AC which was making it difficult for her to do [id number]. Extrem: General: normal to inspection Right upper extremity: normal to inspection and shoulder/upper arm Left upper extremity: no
== END 2022-06-03 13:15 | disposition home or self-care (01) ==
LOC: ANHED 18:41 → ANH2MED 20:21
PROVIDERS: Nurse Practitioner; Admitting Provider Family Medicine; Emergency Provider Emergency Medicine; PCP Internal Medicine; Visit Provider Chiropractor
DX: G45.9 Transient cerebral ischemic attack, unspecified (principal); J44.9 Chronic obstructive pulmonary disease, unspecified; K21.9 Gastro-esophageal reflux disease without esophagitis; R41.3 Other amnesia; G25.81 Restless legs syndrome; M25.551 Pain in right hip; M25.511 Pain in right shoulder; W19.XXXA Unspecified fall, initial encounter; Z20.822 Contact with and (suspected) exposure to COVID-19; I08.2 Rheumatic disorders of both aortic and tricuspid valves; J98.11 Atelectasis; Z87.891 Personal history of nicotine dependence; Z79.82 Long term (current) use of aspirin; Z79.899 Other long term (current) drug therapy; Z82.3 Family history of stroke
CPT/HCPCS: 36415; 70450; 70496; 70498; 70553; 71045; 73030; 73502; 80053; 81003; 83735; 84443; 84484; 85025; 85610; 85730; 87637; 93005; 93306; 94640; 97161; 97165; 99285; A9270; A9577; G0378; Q9967

== ENCOUNTER 2022-11-19 07:59 | Outpatient (CLI) | payer MEDICARE, SELFPAY ==
[2022-11-19 08:14] LABS: Basophils Absolute Auto 0.06 K/mm3 (0.00-0.10); Basophils Percent Auto 0.9 % (0.0-1.0); Eosinophils Absolute Auto 0.37 K/mm3 (0.02-0.50); Eosinophils Percent Auto 5.8 % (1.0-6.0); Hemoglobin 14.6 g/dL (11.7-13.8); Immature Granulocyte Absolute 0.02 K/mm3 (0.00-0.00); Immature Granulocyte Percent A 0.3 % (0.0-0.0); Lymphocytes Absolute Auto 2.36 K/mm3 (1.10-4.50); Lymphocytes Percent Auto 36.8 % (18.0-42.0); Mean Corpuscular HGB Conc 33.2 g/dL (32.0-36.0); Mean Corpuscular Hemoglobin 34.6 pg (27.0-31.0); Mean Corpuscular Volume 104.3 fL (78.0-102.0); Monocytes Absolute Auto 0.59 K/mm3 (0.10-0.90); Monocytes Percent Auto 9.2 % (2.0-11.0); Platelet Count Result 230 K/mm3 (150-420); Red Blood Count 4.22 M/mm3 (4.20-5.40); Red Cell Distribution Width 12.9 % (11.6-14.4); White Blood Count 6.4 K/mm3 (4.8-10.8)
[2022-11-19 08:17] LABS: Appearance Urine Clear (Clear); Bilirubin Urine Negative (Negative); Blood Urine Negative (Negative); Color Urine Yellow (Yellow); Glucose Urine UA Negative (Negative); Ketones Urine Negative (Negative); Leukocyte Esterase Ur Negative (Negative); Nitrate Urine Negative (Negative); Protein Urine Negative (Negative); Specific Grav Ur 1.025 (1.010-1.020); Urobilinogen Urine 0.2 mg/dL (0.2-1.0)
[2022-11-19 08:22] LABS: Add Urine Microscopic? NO
[2022-11-19 08:27] LABS: Hemoglobin A1C 5.6 % (<5.7)
[2022-11-19 09:27] LABS: Alanine Aminotransferase 29 U/L (14-59); Alkaline Phosphatase 68 U/L (46-116); Anion Gap 7 mmol/L (8-16); Aspartate Amino Transferase 16 U/L (15-37); Bilirubin,Total 0.6 mg/dL (0.00-1.00); Blood Urea Nitrogen 22 mg/dL (7-18); Calcium 9.1 mg/dL (8.5-10.1); Carbon Dioxide 31 mmol/L (21-32); Chloride 108 mmol/L (98-108); Cholesterol 157 mg/dL (0-200); Estimated Glomerular Filt Rate 40; Free T3 2.32 pg/mL (2.18-3.98); Free T4 Free Thyroxine 0.74 ng/dL (0.76-1.46); Glucose 97 mg/dL (70-99); HDL Direct 57 mg/dL (40-60); LDL Cholesterol Calculated 72 mg/dL (<130); Osmolality Calculated 305 mOsm/kg (285-295); Potassium 4.3 mmol/L (3.5-5.1); Sodium 146 mmol/L (136-145); Thyroid Stimulating Hormone 1.97 uIU/mL (0.36-3.74); Triglycerides 142 mg/dL (0-150); Vitamin B12 1913 pg/mL (193-986)
== END 2022-11-19 08:00 | disposition home or self-care (01) ==
LOC: CHSLAB 08:01
PROVIDERS: PCP Internal Medicine; Visit Provider Internal Medicine
DX: E11.9 Type 2 diabetes mellitus without complications (principal); I10 Essential (primary) hypertension; E78.2 Mixed hyperlipidemia; E53.8 Deficiency of other specified B group vitamins
CPT/HCPCS: 36415; 80053; 80061; 81003; 82607; 83036; 84439; 84443; 84481; 85025

== ENCOUNTER 2023-01-27 07:13 | Outpatient (CLI) | payer MEDICARE, SELFPAY ==
[2023-01-27 08:13] LABS: Anion Gap 8 mmol/L (8-16); Blood Urea Nitrogen 14 mg/dL (7-18); Calcium 9.2 mg/dL (8.5-10.1); Carbon Dioxide 30 mmol/L (21-32); Chloride 105 mmol/L (98-108); Estimated Glomerular Filt Rate 52; Glucose 101 mg/dL (70-99); Osmolality Calculated 296 mOsm/kg (285-295); Sodium 143 mmol/L (136-145)
== END 2023-01-27 07:14 | disposition home or self-care (01) ==
LOC: CHSLAB 07:15
PROVIDERS: PCP Internal Medicine; Visit Provider Internal Medicine
DX: N18.2 Chronic kidney disease, stage 2 (mild) (principal)
CPT/HCPCS: 36415; 80048

== ENCOUNTER 2023-06-08 08:16 | Outpatient (CLI) | payer MEDICARE, SELFPAY ==
[2023-06-08 08:42] LABS: Appearance Urine Clear (Clear); Basophils Absolute Auto 0.08 K/mm3 (0.00-0.10); Basophils Percent Auto 0.9 % (0.0-1.0); Bilirubin Urine Negative (Negative); Blood Urine Negative (Negative); Color Urine Light Yellow (Yellow); Eosinophils Absolute Auto 0.79 K/mm3 (0.02-0.50); Eosinophils Percent Auto 8.8 % (1.0-6.0); Glucose Urine UA Negative (Negative); Hematocrit 45.5 % (35.0-42.0); Immature Granulocyte Absolute 0.03 K/mm3 (0.00-0.00); Immature Granulocyte Percent A 0.3 % (0.0-0.0); Ketones Urine Negative (Negative); Leukocyte Esterase Ur 1+ LEU/UL (Negative); Lymphocytes Absolute Auto 2.12 K/mm3 (1.10-4.50); Lymphocytes Percent Auto 23.6 % (18.0-42.0); Mean Corpuscular Hemoglobin 33.9 pg (27.0-31.0); Mean Corpuscular Volume 102.7 fL (78.0-102.0); Mean Platelet Volume 10.8 fl (9.2-11.8); Monocytes Absolute Auto 0.78 K/mm3 (0.10-0.90); Monocytes Percent Auto 8.7 % (2.0-11.0); Neutrophils Absolute Auto 5.2 K/mm3 (1.7-7.2); Neutrophils Percent Auto 57.7 % (50.0-70.0); Nitrate Urine Negative (Negative); Platelet Count Result 282 K/mm3 (150-420); Protein Urine Negative (Negative); Red Blood Count 4.43 M/mm3 (4.20-5.40); Red Cell Distribution Width 13.3 % (11.6-14.4); Urobilinogen Urine 0.2 mg/dL (0.2-1.0)
[2023-06-08 08:53] LABS: Add Urine Microscopic? YES; Bacteria Urine Trace /hpf; RBC Urine None seen /hpf (0-2); Renal Epithelial Cells Urine Few /hpf; Squamous Epithelial Cell Urine Few /hpf (Few)
[2023-06-08 08:58] LABS: Hemoglobin A1C 5.9 % (<5.7)
[2023-06-08 09:38] LABS: Alanine Aminotransferase 25 U/L (14-59); Albumin Level 3.8 g/dL (3.4-5.0); Alkaline Phosphatase 84 U/L (46-116); Anion Gap 9 mmol/L (8-16); Aspartate Amino Transferase 19 U/L (15-37); Bilirubin,Total 0.6 mg/dL (0.00-1.00); Blood Urea Nitrogen 20 mg/dL (7-18); Calcium 9.2 mg/dL (8.5-10.1); Carbon Dioxide 31 mmol/L (21-32); Chloride 104 mmol/L (98-108); Cholesterol 165 mg/dL (0-200); Estimated Glomerular Filt Rate 44; Free T3 2.74 pg/mL (2.18-3.98); Free T4 Free Thyroxine 0.88 ng/dL (0.76-1.46); Glucose 123 mg/dL (70-99); HDL Direct 54 mg/dL (40-60); LDL Cholesterol Calculated 82 mg/dL (<130); Osmolality Calculated 301 mOsm/kg (285-295); Potassium 4.2 mmol/L (3.5-5.1); Sodium 144 mmol/L (136-145); Thyroid Stimulating Hormone 3.03 uIU/mL (0.36-3.74); Total Protein 7.3 g/dL (6.4-8.2); Triglycerides 145 mg/dL (0-150); Vitamin B12 1243 pg/mL (193-986)
== END 2023-06-08 08:17 | disposition home or self-care (01) ==
LOC: CHSLAB 08:18
PROVIDERS: PCP Internal Medicine; Visit Provider Internal Medicine
DX: N39.0 Urinary tract infection, site not specified (principal); E11.9 Type 2 diabetes mellitus without complications; E78.2 Mixed hyperlipidemia; E03.4 Atrophy of thyroid (acquired); E53.8 Deficiency of other specified B group vitamins
CPT/HCPCS: 36415; 80053; 80061; 81001; 82607; 83036; 84439; 84443; 84481; 85025; 87086; 87088

== ENCOUNTER 2023-06-19 09:45 | Outpatient (CLI) | payer MEDICARE, SELFPAY ==
[2023-06-19 10:59] LABS: CRP < 0.5 mg/dL (0.0-0.9)
[2023-06-19 11:36] LABS: Erythrocyte Sedimentation Rate 15 mm/hr (0-20)
== END 2023-06-19 09:46 | disposition home or self-care (01) ==
LOC: CHSLAB 09:46
PROVIDERS: PCP Internal Medicine; Visit Provider Internal Medicine
DX: M54.50 Low back pain, unspecified (principal)
CPT/HCPCS: 36415; 85652; 86140

== ENCOUNTER 2023-07-20 08:28 | Outpatient (CLI) | payer MEDICARE, SELFPAY ==
[2023-07-20 09:18] LABS: Anion Gap 9 mmol/L (4-12); Blood Urea Nitrogen 16 mg/dL (7-18); Calcium 8.8 mg/dL (8.5-10.1); Carbon Dioxide 31 mmol/L (21-32); Chloride 107 mmol/L (98-108); Estimated Glomerular Filt Rate 55; Glucose 83 mg/dL (70-99); Osmolality Calculated 304 mOsm/kg (285-295); Potassium 4.1 mmol/L (3.5-5.1); Sodium 147 mmol/L (136-145)
== END 2023-07-20 08:29 | disposition home or self-care (01) ==
LOC: CHSLAB 08:30
PROVIDERS: PCP Internal Medicine; Visit Provider Internal Medicine
DX: I10 Essential (primary) hypertension (principal)
CPT/HCPCS: 36415; 80048

== ENCOUNTER 2023-11-20 07:11 | Outpatient (CLI) | payer MEDICARE, SELFPAY ==
[2023-11-20 07:32] LABS: Hematocrit 43.7 % (35.0-42.0); Hemoglobin 14.7 g/dL (11.7-13.8); Mean Corpuscular HGB Conc 33.6 g/dL (32-36); Mean Corpuscular Hemoglobin 34.3 pg (27.0-31.0); Mean Corpuscular Volume 102.1 fL (78.0-102.0); Platelet Count Result 250 K/mm3 (150-420); Red Blood Count 4.28 M/mm3 (4.20-5.40); Red Cell Distribution Width 13.3 % (11.6-14.4); White Blood Count 7.4 K/mm3 (4.8-10.8)
[2023-11-20 07:49] LABS: Hemoglobin A1C 5.6 % (<5.7)
[2023-11-20 08:53] LABS: Alanine Aminotransferase 21 U/L (14-59); Alkaline Phosphatase 74 U/L (46-116); Anion Gap 12 mmol/L (4-12); Aspartate Amino Transferase 16 U/L (15-37); Bilirubin,Total 0.7 mg/dL (0.00-1.00); Blood Urea Nitrogen 15 mg/dL (7-18); Calcium 8.9 mg/dL (8.5-10.1); Carbon Dioxide 28 mmol/L (21-32); Chloride 106 mmol/L (98-108); Cholesterol 195 mg/dL (0-200); Creatine Kinase 123 U/L (26-192); Estimated Glomerular Filt Rate 48; Free T3 2.28 pg/mL (2.18-3.98); Free T4 Free Thyroxine 0.74 ng/dL (0.76-1.46); Glucose 97 mg/dL (70-99); HDL Direct 53 mg/dL (40-60); LDL Cholesterol Calculated 111 mg/dL (<130); Osmolality Calculated 302 mOsm/kg (285-295); Potassium 4.2 mmol/L (3.5-5.1); Sodium 146 mmol/L (136-145); Thyroid Stimulating Hormone 2.96 uIU/mL (0.36-3.74); Total Protein 7.2 g/dL (6.4-8.2); Triglycerides 156 mg/dL (0-150); Vitamin B12 1197 pg/mL (193-986)
[2023-11-22 06:08] LABS: Vitamin D 25 Hydroxy 49 ng/mL (30-100)
[2023-11-23 06:58] LABS: Add Urine Microscopic? NO; Appearance Urine Clear (Clear); Bilirubin Urine Negative (Negative); Blood Urine Negative (Negative); Color Urine Light Yellow (Yellow); Glucose Urine UA Negative (Negative); Ketones Urine Negative (Negative); Leukocyte Esterase Ur Negative LEU/UL (Negative); Nitrate Urine Negative (Negative); Protein Urine Negative (Negative); Specific Grav Ur 1.015 (1.010-1.020); Urobilinogen Urine 0.2 mg/dL (0.2-1.0)
== END 2023-11-20 07:12 | disposition home or self-care (01) ==
LOC: CHSLAB 07:13
PROVIDERS: PCP Internal Medicine; Visit Provider Internal Medicine
DX: E11.9 Type 2 diabetes mellitus without complications (principal); E78.2 Mixed hyperlipidemia; N39.0 Urinary tract infection, site not specified; E03.9 Hypothyroidism, unspecified; M81.0 Age-related osteoporosis without current pathological fracture; E53.8 Deficiency of other specified B group vitamins
CPT/HCPCS: 36415; 80053; 80061; 81003; 82306; 82550; 82607; 83036; 84439; 84443; 84481; 85027

== ENCOUNTER 2024-07-01 07:31 | Outpatient (CLI) | payer MEDICARE, SELFPAY ==
--- OUTSIDE RECORDS SUMMARY | 2024-07-01 07:43 | XMS_ITS | Clinical Summary ---
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 Gender Identity Not on file Sexual Orientation Not on file Last Filed Vital Signs Vital Sign Reading Time Taken Comments Blood Pressure 138/82 09/08/2017 9:29 AM CDT Pulse 85 09/08/2017 9:29 AM CDT Temperature - - Respiratory Rate - - Oxygen Saturation - - Inhaled Oxygen Concentration - - Weight 72.6 kg (160 lb) 09/08/2017 9:29 AM CDT Height 160 cm (5' 3 ) 03/17/2017 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 Body Mass Index 28.34 03/17/2017 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 Plan of Treatment Health Maintenance Due Date Last Done Comments DTaP, Tdap and Td Vaccines ( 1 - Tdap) 1961 Zoster Vaccines (1 of 2) 1992 Dexa Scan (General) 10/12/2007 Pneumococcal Vaccine: 65+ Ye ars (2 of 2 - PCV) 04/20/2015 04/20/2014 RSV Immunization or 60+ Years (1 - 1-dose 75+ series) 2017 COVID-19 Vaccine ( - 2023-2 5 season) 2023 Influenza Adult (#1) 2024 04/20/2014 Meningococcal B Vaccine Aged Out No l onger eligible based on patient's age to complete this topic Meningococcal Vaccine Aged Out No manny seda eligible based on patient's age to complete this topic RSV Immunizations Under 20 Months Aged Out No longer eligible based on patient's age to complete this topic
[2024-07-01 08:11] LABS: Hematocrit 44.6 % (35.0-42.0); Hemoglobin 14.2 g/dL (11.7-13.8); Mean Corpuscular HGB Conc 31.8 g/dL (32-36); Mean Corpuscular Hemoglobin 33.1 pg (27.0-31.0); Mean Platelet Volume 11.2 fl (9.2-11.8); Platelet Count Result 266 K/mm3 (150-420); Red Blood Count 4.29 M/mm3 (4.20-5.40); Red Cell Distribution Width 13.1 % (11.6-14.4)
[2024-07-01 08:19] LABS: Add Urine Microscopic? YES; Appearance Urine Clear (Clear); Bilirubin Urine Negative (Negative); Blood Urine Trace-intact (Negative); Color Urine Yellow (Yellow); Glucose Urine UA Negative (Negative); Ketones Urine Trace (Negative); Leukocyte Esterase Ur Trace (Negative); Nitrate Urine Negative (Negative); Protein Urine Negative (Negative); Urobilinogen Urine 0.2 mg/dL (0.2-1.0); pH Urine 5.5 (5.0-8.0)
[2024-07-01 08:31] LABS: Alanine Aminotransferase 28 U/L (14-59); Albumin Level 4.1 g/dL (3.4-5.0); Alkaline Phosphatase 91 U/L (46-116); Anion Gap 12 mmol/L (4-12); Aspartate Amino Transferase 13 U/L (15-37); Bilirubin,Total 0.7 mg/dL (0.00-1.00); Blood Urea Nitrogen 15 mg/dL (7-18); Calcium 9.2 mg/dL (8.5-10.1); Carbon Dioxide 29 mmol/L (21-32); Chloride 107 mmol/L (98-108); Cholesterol 148 mg/dL (0-200); Creatine Kinase 175 U/L (26-192); Estimated Glomerular Filt Rate 44; Free T4 Free Thyroxine 0.92 ng/dL (0.76-1.46); Glucose 136 mg/dL (70-99); HDL Direct 54 mg/dL (40-60); LDL Cholesterol Calculated 57 mg/dL (<130); Osmolality Calculated 308 mOsm/kg (285-295); Potassium 3.9 mmol/L (3.5-5.1); Sodium 148 mmol/L (136-145); Thyroid Stimulating Hormone 1.71 uIU/mL (0.36-3.74); Total Protein 7.2 g/dL (6.4-8.2); Triglycerides 185 mg/dL (0-150)
[2024-07-01 08:33] LABS: Hemoglobin A1C 5.9 % (<5.7)
[2024-07-01 09:40] LABS: Bacteria Urine Trace /hpf; RBC Urine 0-2 /hpf (0-2); Squamous Epithelial Cell Urine Few /hpf (Few); WBC Urine 0-3 /hpf (0-3)
== END 2024-07-01 07:32 | disposition home or self-care (01) ==
LOC: CHSLAB 07:34
PROVIDERS: PCP Internal Medicine; Visit Provider Internal Medicine
DX: E03.4 Atrophy of thyroid (acquired) (principal); I10 Essential (primary) hypertension; E53.8 Deficiency of other specified B group vitamins; E78.2 Mixed hyperlipidemia; E11.9 Type 2 diabetes mellitus without complications
CPT/HCPCS: 36415; 80053; 80061; 81001; 82550; 83036; 84439; 84443; 85027

== ENCOUNTER 2024-12-05 14:20 | Outpatient (CLI) | payer MEDICARE, SELFPAY ==
--- NOTE | ~2024-12-05 | XR_ITS ---
EXAM/PROCEDURE: XR chest 2V - 12/05/2024 14:30 CDT HISTORY: 84 years old Female with Injury R Chest Wall 2 weeks ago, RLL Crepts/Cough TECHNIQUE: Two view(s) of the chest. COMPARISON: None available. FINDINGS: LUNGS/ PLEURA: No focal consolidation. No appreciable pneumothorax or large pleural effusion. HEART/ MEDIASTINUM: Heart appears normal in size. BONES: Degenerative changes. OTHER: Visualized upper abdomen is unremarkable. IMPRESSION: No acute process. Reviewed, dictated and finalized at location A. IMPRESSION: No acute process.
--- OUTSIDE RECORDS SUMMARY | 2024-12-05 15:25 | XMS_ITS | Continuity of Care Document ---
Author Organization [facility]. If a dditional information is needed, contact Health Information Management at [phone] Address [address] [place] [address] Phone Care Team Providers Care Perinatal Breastfeeding Assistant Name Role Phone Unavailable Unavailable Unavailable Unavailable Unavailable Unavailable Allergies and Adverse Reactions N.K.D.A.(Allergy) Onset: 13-Jun-2015 Reaction:Info Not Available No Known Allergies(Allergy) Onset: 02-May-2015 Medications Donepezil hydrochloride 5 MG Oral Tablet;5 MG Orally Once a day, 1 tablet ALMA BRAIN E Comments:5 MG Orally Once a day, 1 tablet Vitamin B12;Orally Once a Da y, 1000 MCG,1 Tablet ALMA BRAIN E Comments:Orally Once a Day, 1000 MCG,1 Tablet Docusate Sodium;100 MG Orall y Twice a day, 1 Tablet ALMA BRAIN E Comments:100 MG Orally Twice a day, 1 Tablet Effexor;Orally Once a Day, 1 50 MG, 1 tablet ALMA BRAIN E Comments:Orally Once a Day, 150 MG, 1 tablet Levothyroxine Sodium 0.137 M G Oral Tablet [Synthroid];Orally Once a day, 0.025 MG, 1 tablet ALMA BRAIN E Comments:Orally Once a day, 0.025 MG, 1 tablet Ranitidine 300 MG Oral Capsu le;300 MG Orally Once a day, 1 Tablet ALMA BRAIN E Comments:300 MG Orally Once a day, 1 Tablet Amitriptyline HCl;100 MG Ora lly Once a day, 1 tablet ALMA BRAIN E Comments:100 MG Orally Once a day, 1 tablet Diltiazem Hydrochloride 60 M G Oral Tablet;60 MG Orally Once a Day, 1 tablet ALMA BRAIN E Comments:60 MG Orally Once a Day, 1 tablet pantoprazole 40 MG Delayed R elease Oral Tablet;40 MG Orally Once a day, 1 tablet ALMA Culver Comments:40 MG Orally Once a day, 1 tablet POLYETHYLENE GLYCOL 3350 142 MG/ML Oral Solution [Miralax];Orally As Needed, not defined ALMA Culver Comments:Orally As Needed, n ot defined Metamucil;Orally As Needed, not defined ALMA Culver Comments:Orally As Needed, n ot defined Vitamin D3;1000 UNIT Orally Once a day, 1 capsule ALMA Culver Comments:1000 UNIT Orally On ce a day, 1 capsule pregabalin 150 MG Oral Capsu le [Lyrica];150 MG Orally Twice a Day, 1 capsule ALMA Culver Comments:150 MG Orally Twice a Day, 1 capsule tiotropium 0.018 MG/ACTUAT I nhalant Powder [Spiriva];18 MCG Inhalation Once a day, 1 capsule ALMA Culver Comments:18 MCG Inhalation O nce a day, 1 capsule ProAir HFA;Inhalation Three Times a Day, 2 puffs as needed ALMA Culver Comments:Inhalation Three Ti mes a Day, 2 puffs as needed
== END 2024-12-05 14:21 | disposition home or self-care (01) ==
LOC: CHSLAB 14:22
PROVIDERS: PCP Internal Medicine; Visit Provider Internal Medicine
DX: S29.9XXA Unspecified injury of thorax, initial encounter (principal); R05.9 Cough, unspecified
CPT/HCPCS: 71046

== ENCOUNTER 2024-12-28 08:16 | Outpatient (CLI) | payer MEDICARE, SELFPAY ==
[2024-12-28 08:48] LABS: Hematocrit 43.2 % (35.0-42.0); Hemoglobin 13.8 g/dL (11.7-13.8); Mean Corpuscular HGB Conc 31.9 g/dL (32-36); Mean Corpuscular Hemoglobin 33.6 pg (27.0-31.0); Mean Corpuscular Volume 105.1 fL (78.0-102.0); Platelet Count Result 250 K/mm3 (150-420); Red Blood Count 4.11 M/mm3 (4.20-5.40); White Blood Count 7.0 K/mm3 (4.8-10.8)
[2024-12-28 09:01] LABS: Hemoglobin A1C 5.9 % (<5.7)
[2024-12-28 09:09] LABS: Add Urine Microscopic? YES; Appearance Urine Clear (Clear); Glucose Urine UA Negative (Negative); Leukocyte Esterase Ur Trace LEU/UL (Negative); Nitrate Urine Negative (Negative); Specific Grav Ur 1.015 (1.010-1.020)
[2024-12-28 10:01] LABS: Alanine Aminotransferase 18 U/L (6-35); Albumin Level 4.6 g/dL (3.5-5.1); Alkaline Phosphatase 85 U/L (38-126); Anion Gap 10 mmol/L (4-12); Aspartate Amino Transferase 24 U/L (14-36); Bilirubin,Total 0.8 mg/dL (0.2-1.3); Blood Urea Nitrogen 13 mg/dL (7-17); Calcium 9.7 mg/dL (8.4-10.2); Carbon Dioxide 31 mmol/L (22-30); Chloride 106 mmol/L (98-107); Cholesterol 182 mg/dL (0-200); Estimated Glomerular Filt Rate 50; Glucose 127 mg/dL (65-110); HDL Direct 50 mg/dL; Osmolality Calculated 306 mOsm/kg (285-295); Potassium 4.6 mmol/L (3.4-5.0); Sodium 147 mmol/L (137-145); Total Protein 7.3 g/dL (6.3-8.2); Triglycerides 196 mg/dL (<150)
[2024-12-28 10:18] LABS: Free T4 Free Thyroxine 0.92 ng/dL (0.78-2.19)
[2024-12-28 10:19] LABS: Free T3 3.26 pg/mL (2.18-3.98)
[2024-12-28 10:32] LABS: Thyroid Stimulating Hormone 1.740 uIU/mL (0.465-4.680)
[2024-12-28 10:51] LABS: Vitamin B12 934.0 pg/mL (239-931)
== END 2024-12-28 08:17 | disposition home or self-care (01) ==
PROVIDERS: PCP Internal Medicine; Visit Provider Internal Medicine
DX: E03.4 Atrophy of thyroid (acquired) (principal); E11.9 Type 2 diabetes mellitus without complications; E53.8 Deficiency of other specified B group vitamins; E78.2 Mixed hyperlipidemia; M81.0 Age-related osteoporosis without current pathological fracture; N39.0 Urinary tract infection, site not specified
CPT/HCPCS: 36415; 80053; 80061; 81001; 82306; 82607; 83036; 84439; 84443; 84481; 85027